=== PATIENT | male | born 1950 | race African-American/Black ===

== ENCOUNTER 2018-01-13 16:11 | Emergency (ER) | payer MEDICARE, MEDICAID ==
[2018-01-13] MEDS ORDERED: NS 0.9% 1000 ML* 1,000 ML IV ONE (16:19)
[2018-01-13 16:35] LABS: ABS Basophils 0 10^3/ul (0-0.2); ABS Eosinophils 0 10^3/ul (0-0.6); ABS Lymphocytes 1.7 10^3/ul (1.0-4.8); ABS Monocytes 0.5 10^3/ul (0-0.8); ABS Neutrophils 6.3 10^3/ul (1.5-7.7); ABS Nucleated RBC 0 10^3/ul; Eosinophil % 0.2 % (0-6); Hematocrit 38 % (42-52); Hemoglobin 13.2 g/dl (14.0-18.0); Lymphocyte % 19.8 % (25-47); Mean Corpuscular HGB Conc 35 g/dl (31-36); Mean Corpuscular Hemoglobin 32 pg (27-31); Mean Corpuscular Volume 93 fL (80-94); Mean Platelet Volume 7.8 um3 (7.4-10.4); Nucleated Red Blood Cells % 0.2; Platelet Count 201 10^3/ul (150-450); Red Blood Count 4.08 10^6/ul (4.00-5.40); Red Cell Distribution Width 14 % (10.5-15); White Blood Count 8.6 10^3/ul (3.5-10.8)
--- NOTE | 2018-01-13 17:09 | RAD ---
INDICATION: Chest pain COMPARISON: September 23, 2014 TECHNIQUE: An AP portable view obtained at 1635 hours is submitted. FINDINGS: Bones/Soft Tissues: There are no acute bony findings. Cardiomediastinal: The cardiomediastinal silhouette is normal. Lungs: There are no infiltrates. Pleura: There are no pleural effusions. Other: None IMPRESSION: NO ACTIVE DISEASE.
[2018-01-13 18:18] LABS: EGFR Non-African American 45.2 (>60)
--- NOTE | 2018-01-13 19:13 | ED ---
Complex/Multi-Sys Presentation - HPI Summary HPI Summary: This is scribe Andrewhieu Mccord documenting for attending Dr. Harmeet Campos MD. A 67 y/o male XUAN presents to ED c/o heat exhaustion. Currently the patient feels much better and is fine with going home. As per triage, "heat exhaustion from packing his apartment with no AC". In the ED room, the patient had a pulse of 65 BPM, O2 saturation of 99% and blood pressure of 140/95. According to the patient he is here in the ED because of heat exhaustion. He was working hard and packing his place when his apartment was at an extremely high temperature. He was sweating, enough that it was pouring off his face. He couldn't seem to cool off even when using a fan. He noted that he was sweating so much that he was vomiting and dry heaving coupled with SOB. He stated that he should have never been working that hard and working in that kind of heat. As per EMS, the apartment was stuffy, hot and smoky (pouring out smoke). Pt denies any CP ( tightness or pressure). Patient denies any smoke as he smokes outdoors. Patient felt better in the A/C. He noted that he ran out of medications last night. - History Of Current Complaint Chief Complaint: EDGeneral Time Seen by Provider: 01/13/18 16:14 Hx Obtained From: Patient Onset/Duration: Sudden Onset, Lasting Hours, Resolved Timing: Constant Aggravating Factor(s): Being in extreme heat. Alleviating Factor(s): Resting in A/C. Associated Signs And Symptoms: Positive: SOB - RESOLVED, Vomiting - RESOLVED, Diaphoresis - RESOLVED - Allergies/Home Medications Allergies/Adverse Reactions: Allergies Allergy/AdvReac Type Severity Reaction Status Date / Time No Known Allergies Allergy Verified 01/13/18 16:18 PMH/Surg Hx/FS Hx/Imm Hx Endocrine/Hematology History: Denies: Hx Anticoagulant Therapy, Hx Diabetes Cardiovascular History: Denies: Hx Hypercholesterolemia, Hx Hypertension, Hx Pacemaker/ICD Respiratory History: Denies: Hx Asthma, Hx Chronic Obstructive Pulmonary Disease (COPD) GI History: Reports: Hx Hiatal Hernia History: Denies: Hx Renal Disease Musculoskeletal History: Reports: Hx Back Problems Sensory History: Reports: Hx Contacts or Glasses Denies: Hx Hearing Aid Opthamlomology History: Reports: Hx Contacts or Glasses Neurological History: Denies: Hx Dementia, Hx Seizures Psychiatric History: Reports: Other Psychiatric Issues/Disorders - Mental Health Issues Denies: Hx Panic Disorder - Surgical History Surgery Procedure, Year, and Place: Appendectomy; Exc. Of Chest Tumor; Bilateral Inguinal Hernia Repair Infectious Disease History: No Infectious Disease History: Reports: Hx of Known/Suspected MRSA - wound 2011, Hx Shingles - December 2012 Denies: Traveled Outside the [place] in Last 30 Days - Family History Known Family History: Negative: Blood Disorder - Social History Alcohol Use: None Alcohol Amount: 1 drink per week Substance Use Type: Reports: None Substance Use Comment - Amount & Last Used: oxycodone Hx Tobacco Use: Yes Smoking Status (MU): Current Every Day Smoker Type: Cigarettes Amount Used/How Often: 1 PPD Length of Time of Smoking/Using Tobacco: 34 Have You Smoked in the Last Year: Yes Review of Systems Positive: Skin Diaphoresis - RESOLVED. Negative: Fever, Chills Negative: Erythema Negative: Sore Throat Negative: Chest Pain Positive: Shortness Of Breath - RESOLVED. Negative: Cough Positive: Vomiting - RESOLVED. Negative: Abdominal Pain, Nausea Negative: dysuria, hematuria Negative: Myalgia, Edema Negative: Rash Neurological: Other - NEGATIVE: Dizziness. All Other Systems Reviewed And Are Negative: Yes Physical Exam - Summary Physical Exam Summary: Constitutional: Well-developed, Well-nourished, Alert. (-) Distressed Skin: Warm, Dry HENT: Normocephalic; Atraumatic Eyes: Conjunctiva normal Neck: Musculoskeletal ROM normal neck. (-) JVD, (-) Stridor, (-) Tracheal deviation Cardio: Rhythm regular, rate normal, Heart sounds normal; Intact distal pulses; The pedal pulses are 2+ and symmetric. Radial pulses are 2+ and symmetric. (-) Murmur Pulmonary/Chest wall: Effort normal. (-) Respiratory distress, (-) Wheezes, (-) Rales Abd: Soft, (-) epigastric tenderness, (-) Distension, (-) Guarding, (-) Rebound Musculoskeletal: (-) Edema Lymph: (-) Cervical adenopathy Neuro: Alert, Oriented x3 Psych: Mood and affect Normal Triage Information Reviewed: Yes Vital Signs On Initial Exam: Initial Vitals Temp Pulse Resp BP Pulse Ox 98.5 F 66 18 169/99 100 01/13/18 16:15 01/13/18 16:15 01/13/18 16:15 01/13/18 16:15 01/13/18 16:15 Vital Signs Reviewed: Yes Diagnostics - Vital Signs Vital Signs Temp Pulse Resp BP Pulse Ox 01/13/18 18:46 58 167/94 99 01/13/18 18:16 63 151/92 95 01/13/18 18:00 71 97 01/13/18 17:46 65 160/83 97 01/13/18 17:21 65 164/94 98 01/13/18 17:20 72 99 01/13/18 16:47 68 179/113 98 01/13/18 16:30 100 01/13/18 16:17 62 169/99 100 01/13/18 16:16 61 100 01/13/18 16:15 98.5 F 66 18 169/99 100 - Laboratory Lab Results: Lab Results 01/13/18 01/13/18 01/13/18 Range/Units 16:19 16:20 16:21 WBC 8.6 (3.5-10.8) 10^3/ul RBC 4.08 (4.00-5.40) 10^6/ul Hgb 13.2 L (14.0-18.0) g/dl Hct 38 L (42-52) % MCV 93 (80-94) fL MCH 32 H (27-31) pg MCHC 35 (31-36) g/dl RDW 14 (10.5-15) % Plt Count 201 (150-450) 10^3/ul MPV 7.8 (7.4-10.4) um3 Neut % (Auto) 73.2 (38-83) % Lymph % (Auto) 19.8 L (25-47) % [place] % (Auto) 6.3 (0-7) % Eos % (Auto) 0.2 (0-6) % Baso % (Auto) 0.5 (0-2) % Absolute Neuts (auto) 6.3 (1.5-7.7) 10^3/ul Absolute Lymphs (auto) 1.7 (1.0-4.8) 10^3/ul Absolute Monos (auto) 0.5 (0-0.8) 10^3/ul Absolute Eos (auto) 0 (0-0.6) 10^3/ul Absolute Basos (auto) 0 (0-0.2) 10^3/ul Absolute Nucleated RBC 0 10^3/ul Nucleated RBC % 0.2 Sodium 142 (135-145) mmol/L Potassium 3.6 (3.5-5.0) mmol/L Chloride 109 (101-111) mmol/L Carbon Dioxide 23 (22-32) mmol/L Anion Gap 10 (2-11) mmol/L BUN 11 (6-24) mg/dL Creatinine 1.55 H (0.67-1.17) mg/dL Est GFR ( Amer) 54.7 (>60) Est GFR (Non-Af Amer) 45.2 (>60) BUN/Creatinine Ratio 7.1 L (8-20) Glucose 98 (70-100) mg/dL Lactic Acid 1.4 (0.5-2.0) mmol/L Calcium 10.1 (8.6-10.3) mg/dL Total Bilirubin 0.90 (0.2-1.0) mg/dL AST 22 (13-39) U/L ALT 17 (7-52) U/L Alkaline Phosphatase 85 (34-104) U/L Total Creatine Kinase 438 H (10-223) U/L Troponin I 0.01 (<0.04) ng/mL Total Protein 7.2 (6.4-8.9) g/dL Albumin 4.4 (3.2-5.2) g/dL Globulin 2.8 (2-4) g/dL Albumin/Globulin Ratio 1.6 (1-3) Result Diagrams: 01/13/18 16:20 01/13/18 16:19 Lab Statement: Any lab studies that have been ordered have been reviewed, and results considered in the medical decision making process. - Radiology CXR Radiology Interpretation Completed By: Radiologist - No active disease. ED physician reviewed this radiology report. - EKG 1638 Cardiac Rate: Bradycardia - 53 BPM EKG Rhythm: Sinus Bradycardia EKG Interpretation: Negative STEMI. Re-Evaluation - Re-Evaluation First Eval Re-Evaluation Time: 20:06 Change: Improved Comment: Patient is feeling much better and is fine with going home. Complex Multi-Symp Course/Dx Course Of Treatment: A 67 y/o male XUAN presents to ED c/o heat exhaustion. Currently the patient feels much better and is fine with going home. A CXR revealed no active disease. An EKG revealed bradycardic rate of 53 BPM, negative STEMI. In the ED course, the patient received Navane and IV fluids. During reevaluation, the patient noted that he is feeling much better and is fine with going home. Patient will be discharged with a diagnosis of heat exhaustion. Patient is to follow up with PCP or [facility] in 1 -2 days. Patient is agreeable with this plan. - Diagnoses Provider Diagnoses: Heat exhaustion Discharge - Sign-Out/Discharge Documenting (check all that apply): Patient Departure - DISCHARGE - Discharge Plan Condition: Stable Disposition: HOME Patient Education Materials: Heat Exhaustion (ED) Referrals: Kenneth Cid MD [Primary Care Provider] - 2 Days [facility] [Outside] - 2 Days Additional Instructions: FOLLOW UP WITH PRIMARY CARE PHYSICIAN IN 1-2 DAYS. PATIENT MAY FOLLOW UP WITH [facility] IF PRIMARY CARE IS NOT AVAILABLE. RETURN TO ED FOR ANY NEW OR WORSENING SYMPTOMS.
[2018-01-13] MEDS ORDERED: THIOTHIXENE 2 MG PO ONE (20:06)
[2018-01-13] MEDS ORDERED: THIOTHIXENE 1 MG PO ONE (21:00)
[2018-01-13 21:07] VITALS: BP 163/93
== END 2018-01-13 21:15 | disposition home or self-care (01) ==
LOC: ED 16:11
DX: T67.5XXA Heat exhaustion, unspecified, initial encounter (principal); X58.XXXA Exposure to other specified factors, initial encounter; Y92.9 Unspecified place or not applicable; F17.210 Nicotine dependence, cigarettes, uncomplicated
CPT/HCPCS: 36415; 71045; 80053; 82550; 83605; 84484; 85025; 93005; 96360; 99283; A9270-GY

== ENCOUNTER 2018-11-20 11:28 | Emergency (ER) | payer MEDICAID, MEDICARE, OTHER ==
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
[2018-11-20 14:05] VITALS: BP 155/93
== END 2018-11-20 14:04 | disposition home or self-care (01) ==
LOC: ED 11:28
DX: S80.01XA Contusion of right knee, initial encounter (principal); S46.911A Strain of unspecified muscle, fascia and tendon at shoulder and upper arm level, right arm, initial encounter; S80.212A Abrasion, left knee, initial encounter; S80.211A Abrasion, right knee, initial encounter; S50.811A Abrasion of right forearm, initial encounter; V13.4XXA Pedal cycle driver injured in collision with car, pick-up truck or van in traffic accident, initial encounter; Y93.55 Activity, bike riding; Y92.410 Unspecified street and highway as the place of occurrence of the external cause; F17.210 Nicotine dependence, cigarettes, uncomplicated
CPT/HCPCS: 99282

== ENCOUNTER 2021-11-14 07:08 | Inpatient (IN) ==
[2021-11-14] MEDS ORDERED: Magnesium Hydroxide LIQ 30 ML UDC PO PRN (13:06)
[2021-11-14] MEDS: Enoxaparin 40 MG/0.4 ML SYR SUBCUT SCH (21:20)
[2021-11-15 06:52] LABS: ABS Eosinophils 0.1 10^3/ul (0-0.6); ABS Lymphocytes 1.9 10^3/ul (1.0-4.8); ABS Monocytes 0.4 10^3/ul (0-0.8); Eosinophil % 1.2 %; Hematocrit 38 % (42-52); Hemoglobin 13.1 g/dL (14.0-18.0); Lymphocyte % 34.6 %; Mean Corpuscular HGB Conc 34 g/dL (31-36); Mean Corpuscular Hemoglobin 32 pg (27-31); Mean Corpuscular Volume 93 fL (80-94); Mean Platelet Volume 7.2 fL (7.4-10.4); Nucleated Red Blood Cells % 0.1; Platelet Count 198 10^3/uL (150-450); Red Blood Count 4.07 10^6 /uL (4.18-5.48); Red Cell Distribution Width 13 % (10-15); White Blood Count 5.5 10^3/uL (3.5-10.8)
[2021-11-15 07:25] LABS: Albumin 4.1 g/dL (3.2-5.2); Albumin/Globulin Ratio 1.5 (1-3); Globulin 2.7 g/dL (2-4); Total Bilirubin 0.8 mg/dL (0.2-1.0); Total Protein 6.8 g/dL (6.4-8.9); eGFR CKD-EPI 54.4 (>60)
[2021-11-15] MEDS: Enoxaparin 40 MG/0.4 ML SYR SUBCUT SCH (20:50)
[2021-11-16] MEDS: Enoxaparin 40 MG/0.4 ML SYR SUBCUT SCH (19:08)
[2021-11-17] MEDS: Enoxaparin 40 MG/0.4 ML SYR SUBCUT SCH (21:02)
[2021-11-18] MEDS: Enoxaparin 40 MG/0.4 ML SYR SUBCUT SCH (21:00)
[2021-11-18 21:54] LABS: High Sensitivity Troponin 1 Hr 8 pg/mL (<20)
[2021-11-19] MEDS: Enoxaparin 40 MG/0.4 ML SYR SUBCUT SCH (20:05)
[2021-11-20] MEDS: Enoxaparin 40 MG/0.4 ML SYR SUBCUT SCH (19:09)
[2021-11-20] MEDS: Senna TAB 8.6 mg TAB PO PRN (21:21)
[2021-11-21] MEDS: Enoxaparin 40 MG/0.4 ML SYR SUBCUT SCH (20:07)
[2021-11-21] MEDS: Senna TAB 8.6 mg TAB PO PRN (20:10)
[2021-11-22 05:58] LABS: ABS Eosinophils 0.1 10^3/ul (0-0.6); ABS Lymphocytes 1.7 10^3/ul (1.0-4.8); ABS Monocytes 0.6 10^3/ul (0-0.8); ABS Neutrophils 3.6 10^3/ul (1.5-7.7); Eosinophil % 1.2 %; Hematocrit 37 % (42-52); Hemoglobin 12.3 g/dL (14.0-18.0); Lymphocyte % 28.9 %; Mean Corpuscular HGB Conc 34 g/dL (31-36); Mean Corpuscular Hemoglobin 31 pg (27-31); Mean Corpuscular Volume 93 fL (80-94); Mean Platelet Volume 7.4 fL (7.4-10.4); Platelet Count 199 10^3/uL (150-450); Red Blood Count 3.94 10^6 /uL (4.18-5.48); Red Cell Distribution Width 13 % (10-15); White Blood Count 5.9 10^3/uL (3.5-10.8)
[2021-11-22 06:26] LABS: Albumin/Globulin Ratio 1.7 (1-3); Calcium 9.6 mg/dL (8.6-10.3); Globulin 2.3 g/dL (2-4); Potassium 4.3 mmol/L (3.5-5.0); Total Bilirubin 0.6 mg/dL (0.2-1.0); Total Protein 6.3 g/dL (6.4-8.9); eGFR CKD-EPI 52.2 (>60)
[2021-11-22] MEDS: Enoxaparin 40 MG/0.4 ML SYR SUBCUT SCH (19:50)
[2021-11-23] MEDS: Enoxaparin 40 MG/0.4 ML SYR SUBCUT SCH (20:09)
[2021-11-24] MEDS: Benzocaine/Menthol LOZ PO PRN ×2 (10:07→16:37)
[2021-11-24] MEDS ORDERED: BEBTELOVIMAB 175 MG/2 ML VIAL IV ONE (10:48)
[2021-11-24] MEDS ORDERED: NS 0.9% 1000 ml BAG 1,000 ML IV ONE ×2 (15:57→16:03)
[2021-11-24 16:16] LABS: ABS Lymphocytes 1.5 10^3/ul (1.0-4.8); ABS Monocytes 1.2 10^3/ul (0-0.8); ABS Neutrophils 2.1 10^3/ul (1.5-7.7); Eosinophil % 0.7 %; Hematocrit 32 % (42-52); Hemoglobin 10.8 g/dL (14.0-18.0); Lymphocyte % 30.4 %; Mean Corpuscular HGB Conc 33 g/dL (31-36); Mean Corpuscular Hemoglobin 31 pg (27-31); Mean Corpuscular Volume 94 fL (80-94); Nucleated Red Blood Cells % 0.4; Platelet Count 166 10^3/uL (150-450); Red Blood Count 3.47 10^6 /uL (4.18-5.48); Red Cell Distribution Width 13 % (10-15); White Blood Count 4.9 10^3/uL (3.5-10.8)
[2021-11-24 17:07] LABS: Albumin 3.8 g/dL (3.2-5.2); Albumin/Globulin Ratio 1.7 (1-3); Calcium 8.9 mg/dL (8.6-10.3); Globulin 2.2 g/dL (2-4); Potassium 4.5 mmol/L (3.5-5.0); Total Bilirubin 0.5 mg/dL (0.2-1.0); eGFR CKD-EPI 35.7 (>60)
[2021-11-24] MEDS ORDERED: NS 0.9% 1000 ml BAG 1,000 ML IV SCH (19:45)
[2021-11-24] MEDS: Enoxaparin 40 MG/0.4 ML SYR SUBCUT SCH (19:56)
[2021-11-25] MEDS: Benzocaine/Menthol LOZ PO PRN ×3 (01:34→23:21)
[2021-11-25 06:56] LABS: ABS Lymphocytes 1.3 10^3/ul (1.0-4.8); ABS Monocytes 0.7 10^3/ul (0-0.8); ABS Neutrophils 1.9 10^3/ul (1.5-7.7); Eosinophil % 1.2 %; Hematocrit 32 % (42-52); Hemoglobin 11.4 g/dL (14.0-18.0); Lymphocyte % 32.7 %; Mean Corpuscular HGB Conc 35 g/dL (31-36); Mean Corpuscular Hemoglobin 33 pg (27-31); Mean Corpuscular Volume 94 fL (80-94); Mean Platelet Volume 7.1 fL (7.4-10.4); Nucleated Red Blood Cells % 0.1; Platelet Count 162 10^3/uL (150-450); Red Blood Count 3.46 10^6 /uL (4.18-5.48); Red Cell Distribution Width 13 % (10-15); White Blood Count 3.9 10^3/uL (3.5-10.8)
[2021-11-25 07:20] LABS: Calcium 8.9 mg/dL (8.6-10.3); Potassium 4.6 mmol/L (3.5-5.0); eGFR CKD-EPI 42.2 (>60)
[2021-11-25 12:50] LABS: High Sensitivity Troponin 1 Hr 7 pg/mL (<20)
[2021-11-25 15:36] LABS: Urine Appearance Clear; Urine Bilirubin Negative (Negative); Urine Blood Negative (Negative); Urine Color Straw; Urine Glucose Negative (Negative); Urine Ketones Negative (Negative); Urine Nitrite Negative (Negative); Urine Protein Negative (Negative); Urine Specific Gravity 1.006 (1.002-1.030); Urine Urobilinogen Negative (Negative)
[2021-11-25] MEDS: Enoxaparin 40 MG/0.4 ML SYR SUBCUT SCH (20:53)
[2021-11-26] MEDS: Benzocaine/Menthol LOZ PO PRN ×3 (04:54→14:28)
[2021-11-26 06:37] LABS: Calcium 9.1 mg/dL (8.6-10.3); Potassium 4.3 mmol/L (3.5-5.0); eGFR CKD-EPI 48.9 (>60)
[2021-11-26] MEDS: Enoxaparin 40 MG/0.4 ML SYR SUBCUT SCH (20:58)
[2021-11-26] MEDS: Senna TAB 8.6 mg TAB PO PRN (21:00)
[2021-11-27] MEDS: Benzocaine/Menthol LOZ PO PRN ×2 (03:13→23:20)
[2021-11-27] MEDS: Enoxaparin 40 MG/0.4 ML SYR SUBCUT SCH (20:14)
[2021-11-28] MEDS: Enoxaparin 40 MG/0.4 ML SYR SUBCUT SCH (20:52)
[2021-11-29 06:26] LABS: ABS Lymphocytes 1.5 10^3/ul (1.0-4.8); ABS Monocytes 0.6 10^3/ul (0-0.8); Hematocrit 34 % (42-52); Hemoglobin 11.7 g/dL (14.0-18.0); Mean Corpuscular HGB Conc 35 g/dL (31-36); Mean Corpuscular Hemoglobin 32 pg (27-31); Mean Corpuscular Volume 92 fL (80-94); Platelet Count 190 10^3/uL (150-450); Red Blood Count 3.67 10^6 /uL (4.18-5.48); Red Cell Distribution Width 13 % (10-15); White Blood Count 4.2 10^3/uL (3.5-10.8)
[2021-11-29 09:11] LABS: Albumin 4.1 g/dL (3.2-5.2); Albumin/Globulin Ratio 1.5 (1-3); Calcium 9.8 mg/dL (8.6-10.3); Globulin 2.7 g/dL (2-4); Potassium 4.4 mmol/L (3.5-5.0); Total Bilirubin 0.6 mg/dL (0.2-1.0); Total Protein 6.8 g/dL (6.4-8.9); eGFR CKD-EPI 45.7 (>60)
[2021-11-29] MEDS: Benzocaine/Menthol LOZ PO PRN ×3 (17:41→23:35)
[2021-11-29] MEDS: Enoxaparin 40 MG/0.4 ML SYR SUBCUT SCH (20:03)
[2021-11-29] MEDS: Senna TAB 8.6 mg TAB PO PRN (20:08)
[2021-11-30] MEDS: Enoxaparin 40 MG/0.4 ML SYR SUBCUT SCH (21:14)
[2021-11-30] MEDS: Benzocaine/Menthol LOZ PO PRN (23:42)
[2021-12-01] MEDS: Benzocaine/Menthol LOZ PO PRN ×2 (07:35→14:20)
[2021-12-01] MEDS: Enoxaparin 40 MG/0.4 ML SYR SUBCUT SCH (20:30)
[2021-12-02] MEDS: Benzocaine/Menthol LOZ PO PRN ×2 (01:01→20:26)
[2021-12-02] MEDS: Enoxaparin 40 MG/0.4 ML SYR SUBCUT SCH (20:18)
[2021-12-03] MEDS: Benzocaine/Menthol LOZ PO PRN ×2 (07:38→17:30)
[2021-12-03] MEDS: Senna TAB 8.6 mg TAB PO PRN (19:53)
[2021-12-03] MEDS: Enoxaparin 40 MG/0.4 ML SYR SUBCUT SCH (19:54)
[2021-12-04] MEDS: Enoxaparin 40 MG/0.4 ML SYR SUBCUT SCH (19:45)
[2021-12-05] MEDS: Enoxaparin 40 MG/0.4 ML SYR SUBCUT SCH (20:11)
[2021-12-06 06:08] LABS: ABS Eosinophils 0.1 10^3/ul (0-0.6); ABS Lymphocytes 2.1 10^3/ul (1.0-4.8); ABS Monocytes 0.4 10^3/ul (0-0.8); ABS Neutrophils 3.3 10^3/ul (1.5-7.7); Eosinophil % 1.2 %; Hematocrit 34 % (42-52); Hemoglobin 11.9 g/dL (14.0-18.0); Lymphocyte % 35.1 %; Mean Corpuscular HGB Conc 35 g/dL (31-36); Mean Corpuscular Hemoglobin 32 pg (27-31); Mean Corpuscular Volume 93 fL (80-94); Mean Platelet Volume 6.9 fL (7.4-10.4); Platelet Count 242 10^3/uL (150-450); Red Blood Count 3.71 10^6 /uL (4.18-5.48); Red Cell Distribution Width 13 % (10-15); White Blood Count 5.9 10^3/uL (3.5-10.8)
[2021-12-06 06:57] LABS: Albumin/Globulin Ratio 1.6 (1-3); Calcium 9.8 mg/dL (8.6-10.3); Globulin 2.5 g/dL (2-4); Potassium 4.6 mmol/L (3.5-5.0); Total Bilirubin 0.5 mg/dL (0.2-1.0); Total Protein 6.5 g/dL (6.4-8.9); eGFR CKD-EPI 51.3 (>60)
[2021-12-06] MEDS: Enoxaparin 40 MG/0.4 ML SYR SUBCUT SCH (20:56)
[2021-12-07] MEDS: Benzocaine/Menthol LOZ PO PRN (04:28)
[2021-12-07 17:01] VITALS: BP 127/70
== END 2021-12-07 19:10 | disposition home or self-care (01) | DRG 64 ==
LOC: PMRU 10:55
PROVIDERS: ADMIT Physical Medicine & Rehabilitation; ATTEND Physical Medicine & Rehabilitation

== ENCOUNTER 2023-06-27 16:32 | Inpatient (IN) ==
[2023-06-27] MEDS ORDERED: Lactated Ringers 1000 ml BAG 1,000 ML IV ONE ×2 (18:21→21:18)
[2023-06-27 18:51] LABS: Hematocrit 33.3 % (38-53); Hemoglobin 11.4 g/dL (13.2-16.3); Mean Corpuscular Hemoglobin 31.7 pg (27-33); Mean Corpuscular Hgb Conc 34.1 g/dL (31-36); Mean Corpuscular Volume 92.7 fL (80-97); Mean Platelet Volume 8.2 fL (7.5-11.2); Platelet Count 176 10^3/uL (150-450); Red Blood Count 3.59 10^6/uL (4.06-5.63); Red Cell Distribution Width 14.3 % (12-17); White Blood Count 21.4 10^3/uL (3.6-10.2)
[2023-06-27 19:10] LABS: Albumin 3.7 g/dL (3.2-5.2); Albumin/Globulin Ratio 1.1 (1-3); Calcium 8.9 mg/dL (8.6-10.3); Creatinine, Serum 3.38 mg/dL (0.67-1.17); Globulin 3.5 g/dL (2-4); Potassium 3.4 mmol/L (3.5-5.0); Total Bilirubin 1.4 mg/dL (0.2-1.0); Total Protein 7.2 g/dL (6.4-8.9); eGFR CKD-EPI 18.8 (>60)
[2023-06-27 19:14] LABS: ABS Basophils 0.1 10^3/uL (0.0-0.1); ABS Lymphocytes 0.7 10^3/uL (1.0-4.8); ABS Monocytes 1.5 10^3/uL (0.0-1.1); ABS Neutrophils 19.1 10^3/uL (1.5-7.6); ABS Nucleated RBC 0.01 10^3/ul; Eosinophil % 0.1 %; Lymphocyte % 3.2 %
[2023-06-27 20:01] LABS: Rapid COVID-19 Molecular Undetected (Undetected)
[2023-06-27] MEDS ORDERED: cefTRIAXone 1 gm/50 mL D5W 1 GM/50 ML BAG IV ONE (20:15)
[2023-06-27 21:03] LABS: Urine Appearance Turbid; Urine Bilirubin Negative (Negative); Urine Blood 2+ (Negative); Urine Color Yellow; Urine Glucose Negative (Negative); Urine Ketones Negative (Negative); Urine Nitrite Negative (Negative); Urine Protein 2+(100 mg/dL) (Negative); Urine Specific Gravity 1.012 (1.002-1.030); Urine Urobilinogen Negative (Negative)
[2023-06-27 21:23] LABS: Urine Bacteria 1+ (Absent); Urine Red Blood Cell 2+(6-10/hpf) (Absent); Urine White Blood Cell 3+(>20/hpf) (Absent)
[2023-06-27] MEDS ORDERED: oxyCODONE/Acetamin 5/325 mg TAB PO PRN (23:33)
[2023-06-28] MEDS ORDERED: Enoxaparin 30 MG/0.3 ML SYR SUBCUT SCH
[2023-06-28] MEDS: Lactated Ringers 1000 ml BAG 1,000 ML IV SCH ×3 (00:17→20:50)
[2023-06-28] MEDS ORDERED: Potassium Chloride LIQUID 20 MEQ/15 ML LIQUID PO ONE (00:33)
[2023-06-28] MEDS ORDERED: cefTRIAXone 1 gm/50 mL D5W 1 GM/50 ML BAG IV ONE (01:30)
[2023-06-28 02:57] LABS: Calcium 8.4 mg/dL (8.6-10.3); Creatinine, Serum 3.07 mg/dL (0.67-1.17); Potassium 3.8 mmol/L (3.5-5.0); eGFR CKD-EPI 21.1 (>60)
[2023-06-28 03:39] LABS: Osmolality Serum 287 mOsm/kg (275-295)
[2023-06-28 04:06] LABS: Urine Osmo 230 mOsm/kg (150-1150)
[2023-06-28 06:07] LABS: ABS Lymphocytes 0.8 10^3/uL (1.0-4.8); ABS Monocytes 1.4 10^3/uL (0.0-1.1); ABS Neutrophils 15.3 10^3/uL (1.5-7.6); Hematocrit 30.4 % (38-53); Hemoglobin 10.6 g/dL (13.2-16.3); Lymphocyte % 4.3 %; Mean Corpuscular Hgb Conc 34.7 g/dL (31-36); Mean Corpuscular Volume 92.4 fL (80-97); Mean Platelet Volume 8.5 fL (7.5-11.2); Platelet Count 164 10^3/uL (150-450); White Blood Count 17.4 10^3/uL (3.6-10.2)
[2023-06-28 06:30] LABS: Calcium 8.7 mg/dL (8.6-10.3); Creatinine, Serum 2.81 mg/dL (0.67-1.17); Potassium 3.4 mmol/L (3.5-5.0); eGFR CKD-EPI 23.4 (>60)
[2023-06-28] MEDS ORDERED: Potassium Chlor 20 meq TAB.ER PO ONE (07:41)
[2023-06-28] MEDS: Heparin 5000 UNITS/ML 1 mL VIAL SUBCUT SCH ×2 (10:48→21:41)
[2023-06-28] MEDS ORDERED: cefTRIAXone 2 gm/50 mL D5W 2 GM/50 ML BAG IV SCH (21:00)
[2023-06-28] MEDS: cefTRIAXone 2 gm/50 mL D5W 2 GM/50 ML BAG IV SCH (21:34)
[2023-06-29] MEDS: Heparin 5000 UNITS/ML 1 mL VIAL SUBCUT SCH ×2 (08:51→21:59)
[2023-06-29] MEDS: Lactated Ringers 1000 ml BAG 1,000 ML IV SCH (08:52)
[2023-06-29 10:32] LABS: ABS Lymphocytes 0.5 10^3/uL (1.0-4.8); ABS Monocytes 0.6 10^3/uL (0.0-1.1); ABS Neutrophils 6.6 10^3/uL (1.5-7.6); Eosinophil % 0.1 %; Hematocrit 30.7 % (38-53); Hemoglobin 10.7 g/dL (13.2-16.3); Mean Corpuscular Hemoglobin 32.2 pg (27-33); Mean Corpuscular Hgb Conc 34.9 g/dL (31-36); Mean Corpuscular Volume 92.2 fL (80-97); Mean Platelet Volume 8.3 fL (7.5-11.2); Platelet Count 157 10^3/uL (150-450); Red Blood Count 3.34 10^6/uL (4.06-5.63); Red Cell Distribution Width 14.2 % (12-17); White Blood Count 7.7 10^3/uL (3.6-10.2)
[2023-06-29] MEDS ORDERED: Potassium Chlor 20 meq TAB.ER PO ONE (11:03)
[2023-06-29 11:06] LABS: Calcium 8.6 mg/dL (8.6-10.3); Creatinine, Serum 2.13 mg/dL (0.67-1.17); Magnesium 1.9 mg/dL (1.9-2.7); Potassium 3.6 mmol/L (3.5-5.0); eGFR CKD-EPI 32.7 (>60)
[2023-06-29] MEDS: cefTRIAXone 2 gm/50 mL D5W 2 GM/50 ML BAG IV SCH (22:11)
[2023-06-30 07:00] LABS: Calcium 8.8 mg/dL (8.6-10.3); Creatinine, Serum 1.83 mg/dL (0.67-1.17); eGFR CKD-EPI 39.2 (>60)
[2023-06-30 08:10] LABS: Hematocrit 29.4 % (38-53); Hemoglobin 10.2 g/dL (13.2-16.3); Mean Corpuscular Hemoglobin 32.3 pg (27-33); Mean Corpuscular Hgb Conc 34.6 g/dL (31-36); Mean Corpuscular Volume 93.2 fL (80-97); Mean Platelet Volume 8.7 fL (7.5-11.2); Platelet Count 186 10^3/uL (150-450); Red Blood Count 3.15 10^6/uL (4.06-5.63); Red Cell Distribution Width 14.2 % (12-17); White Blood Count 7.5 10^3/uL (3.6-10.2)
[2023-06-30] MEDS: Heparin 5000 UNITS/ML 1 mL VIAL SUBCUT SCH ×2 (08:10→20:30)
[2023-06-30] MEDS: cefTRIAXone 2 gm/50 mL D5W 2 GM/50 ML BAG IV SCH (20:49)
[2023-07-01] MEDS ORDERED: Polyethylene Glycol 3350 17 GM PACKET PO PRN (01:16)
[2023-07-01] MEDS ORDERED: Senna TAB 8.6 mg TAB PO PRN (01:17)
[2023-07-01 06:23] LABS: Hematocrit 31.1 % (38-53); Hemoglobin 10.8 g/dL (13.2-16.3); Mean Corpuscular Hemoglobin 32.2 pg (27-33); Mean Corpuscular Hgb Conc 34.6 g/dL (31-36); Mean Corpuscular Volume 93.1 fL (80-97); Mean Platelet Volume 7.8 fL (7.5-11.2); Platelet Count 227 10^3/uL (150-450); Red Blood Count 3.34 10^6/uL (4.06-5.63); Red Cell Distribution Width 14.3 % (12-17); White Blood Count 9.8 10^3/uL (3.6-10.2)
[2023-07-01 06:42] LABS: Calcium 9.2 mg/dL (8.6-10.3); Creatinine, Serum 1.69 mg/dL (0.67-1.17); Potassium 3.9 mmol/L (3.5-5.0); eGFR CKD-EPI 43.1 (>60)
[2023-07-01] MEDS: Heparin 5000 UNITS/ML 1 mL VIAL SUBCUT SCH ×2 (10:07→21:24)
[2023-07-01] MEDS: guaiFENesin 100 mg/5 ml LIQ unit dose cup PO SCH ×4 (11:47→22:55)
[2023-07-01] MEDS: cefTRIAXone 2 gm/50 mL D5W 2 GM/50 ML BAG IV SCH (21:23)
[2023-07-02] MEDS: guaiFENesin 100 mg/5 ml LIQ unit dose cup PO SCH ×3 (02:51→10:42)
[2023-07-02] MEDS: Heparin 5000 UNITS/ML 1 mL VIAL SUBCUT SCH (08:26)
[2023-07-02 10:27] VITALS: BP 144/79
== END 2023-07-02 13:47 | disposition home or self-care (01) | DRG 872 ==
LOC: EDHOLD 16:32 → ED 16:32 → SUATTDRO 23:09 → EDHOLD 06-28 04:14 → SSU 06-28 04:51
PROVIDERS: ADMIT Internal Medicine; ATTEND Internal Medicine